=== PATIENT | male | born 1970 | race Two or more races ===

== ENCOUNTER 2016-07-07 18:37 | Emergency (ER) | payer SELFPAY ==
[2016-07-07] MEDS ORDERED: OXYCODONE-ACETAMINOPHEN 5-325 MG TABLET PO ONE (19:16)
--- NOTE | 2016-07-07 19:17 | ER Document Report ---
ED Medical Screen (RME) - General Stated Complaint: BACK PAIN Mode of Arrival: Wheelchair Information source: Patient Notes: Patient complains of flareup of chronic low back pain after doing heavy lifting today. Patient does report some pain with urination. Patient denies any paresthesia. hx: None I have greeted and performed a rapid initial assessment of this patient. A comprehensive ED assessment and evaluation of the patient, analysis of test results and completion of the medical decision making process will be conducted by additional ED providers. TRAVEL OUTSIDE OF THE [place] IN LAST 30 DAYS: No - Related Data Allergies/Adverse Reactions: ibuprofen [Ibuprofen] Allergy (Unknown, Verified 07/07/16 19:16) tramadol Allergy (Verified 07/07/16 19:16) Past Medical History Past Surgical History: Reports: Hx Orthopedic Surgery - right shoulder surgery - Immunizations Hx Diphtheria, Pertussis, Tetanus Vaccination: No - 2011 Physical Exam - Vital signs Vitals: Temp Pulse Resp BP Pulse Ox 97.9 F 91 24 H 126/79 H 98 07/07/16 18:54 07/07/16 18:54 07/07/16 18:54 07/07/16 18:54 07/07/16 18:54 - Back Back: Tender - Low back Course - Vital Signs Vital signs: Temp Pulse Resp BP Pulse Ox 97.9 F 91 24 H 126/79 H 98 07/07/16 18:54 07/07/16 18:54 07/07/16 18:54 07/07/16 18:54 07/07/16 18:54
[2016-07-07 20:00] LABS: APPEARANCE,URINE CLEAR; BILIRUBIN,URINE NEGATIVE (NEGATIVE); GLUCOSE, URINE NEGATIVE (NEGATIVE); KETONES,URINE NEGATIVE (NEGATIVE); LEUKOCYTE ESTERASE,URINE NEGATIVE (NEGATIVE); NITRITE,URINE NEGATIVE (NEGATIVE); PROTEIN,URINE NEGATIVE (NEGATIVE); URINE SPECIFIC GRAVITY 1.003; UROBILINOGEN,URINE NEGATIVE mg/dL (<2.0)
--- NOTE | 2016-07-07 20:48 | ER Document Report ---
ED Neck/Back Problem - General Chief Complaint: Back Pain Stated Complaint: BACK PAIN Mode of Arrival: Wheelchair Information source: Patient Notes: 46-year-old Male presents to the emergency department complaining of lower back pain. 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 Patient reports several similar episodes in the past. Denies fall or direct trauma, fever, extremity weakness/numbness/tingling , saddle numbness, incontinence, urinary retention, dysuria or hematuria. TRAVEL OUTSIDE OF THE [place] IN LAST 30 DAYS: No - HPI Patient complains to provider of: Lower back Onset: This afternoon Where: Work Onset: Gradual Timing: Still present Quality of pain: Achy Severity: Moderate Pain Level: 4 Context: Lifting Recent injury: Possibly Associated symptoms: Like prior neck/back pain, Lower back pain. denies: None, Abdominal pain, Chest pain, Chills, Constipation, Fever, Incontinence, Motor loss, Numbness/tingling, Radiation to arm, Radiation to chest, Radiation to leg , Sensory loss, Sweaty, Unable to urinate, Upper back pain, Other Exacerbated by: Movement of trunk Relieved by: Supine Similar symptoms previously: Yes Recently seen / treated by doctor: No - Related Data Allergies/Adverse Reactions: ibuprofen [Ibuprofen] Allergy (Unknown, Verified 07/07/16 19:16) tramadol Allergy (Verified 07/07/16 19:16) Past Medical History - General Information source: Patient - Social History Smoking Status: Current Some Day Smoker Chew tobacco use (# tins/day): No Frequency of alcohol use: None Drug Abuse: None Lives with: Family Family History: Reviewed & Not Pertinent Patient has suicidal ideation: No Patient has homicidal ideation: No - Medical History Medical History: Negative Renal/ Medical History: Denies: Hx Peritoneal Dialysis Past Surgical History: Reports: Hx Orthopedic Surgery - right shoulder surgery - Immunizations Hx Diphtheria, Pertussis, Tetanus Vaccination: Yes - 2011 Review of Systems - Review of Systems Constitutional: No symptoms reported EENT: No symptoms reported Cardiovascular: No symptoms reported Respiratory: No symptoms reported Gastrointestinal: No symptoms reported Genitourinary: No symptoms reported Male Genitourinary: No symptoms reported Musculoskeletal: See HPI Skin: No symptoms reported Hematologic/Lymphatic: No symptoms reported Neurological/Psychological: No symptoms reported -: Yes All other systems reviewed and negative Physical Exam - Vital signs Vitals: Temp Pulse Resp BP Pulse Ox 97.9 F 91 24 H 126/79 H 98 07/07/16 18:54 07/07/16 18:54 07/07/16 18:54 07/07/16 18:54 07/07/16 18:54 Interpretation: Normal - General General appearance: Appears well, Alert In distress: None - HEENT Head: Normocephalic, Atraumatic Eyes: Normal Pupils: PERRL - Respiratory Respiratory status: No respiratory distress Chest status: Nontender Breath sounds: Normal Chest palpation: Normal - Cardiovascular Rhythm: Regular Heart sounds: Normal auscultation Murmur: No Pulses: Normal: Radial, Posterior tibial, Dorsalis pedis Normal capillary refill: Yes - Abdominal Inspection: Normal Distension: No distension Bowel sounds: Normal Tenderness: Nontender Organomegaly: No organomegaly - Back Back: Tender - Tenderness with palpation to bilateral paraspinal musculature L> R lumbar level. Full range of motion without paresthesias or neurological deficits.. No: Normal, Nontender, Deformity/step-off, CVA tenderness, Vertebra tenderness, Scars, Scoliosis, Wounds, Other - Extremities General upper extremity: Normal inspection, Nontender, Normal color, Normal ROM , Normal strength, Normal temperature. No: Tender, Edema General lower extremity: Normal inspection, Nontender, Normal color, Normal ROM , Normal strength, Normal temperature, Normal weight bearing. No: Tender, Edema , Krupa's sign - Neurological Neuro grossly intact: Yes Cognition: Normal Orientation: AAOx4 Mario Coma Scale Eye Opening: Spontaneous Mario Coma Scale Verbal: Oriented Mario Coma Scale Motor: Obeys Commands Mario Coma Scale Total: 15 Speech: Normal Motor strength normal: LUE, RUE, LLE, RLE Sensory: Normal - Psychological Associated symptoms: Normal affect, Normal mood - Skin Skin Temperature: Warm Skin Moisture: Dry Skin Color: Normal Skin Turgor: Elastic Course - Re-evaluation Re-evalutation: 07/07/16 20:52 Patient hemodynamically stable, in no distress, afebrile. The patient presents with back pain without signs of spinal cord compression, cauda equina syndrome, infection, aneurysm, or other serious etiology. The patient is neurologically intact, independently and steadily ambulatory without paresthesias or neurological deficits. Given the extremely low risk of these diagnoses further testing and evaluation for these possibilities does not appear to be indicated at this time. Patient appears stable for discharge and agrees with home care, follow-up with PCP, and ED return precautions. - Vital Signs Vital signs: Temp Pulse Resp BP Pulse Ox 97.9 F 91 24 H 126/79 H 98 07/07/16 18:54 07/07/16 18:54 07/07/16 18:54 07/07/16 18:54 07/07/16 18:54 Discharge - Discharge Clinical Impression: Low back pain Qualifiers: Chronicity: acute Back pain laterality: bilateral Sciatica presence: without sciatica Qualified Code(s): M54.5 - Low back pain Condition: Stable Disposition: HOME, SELF-CARE Instructions: Family Physicians / Practices Additional Instructions: LOW BACK PAIN: Three out of every four people will have an episode of disabling back pain during their lifetime. Most commonly the pain is due to straining of the muscles and ligaments in the low back. Usual treatment includes: (1) Rest on a firm surface. Avoid lying on your stomach. (2) Ice pack the painful area. After a few days, gentle heat may be used intermittently to relax the area, or ice packs can be continued. (3) Medication may be needed -- muscle relaxers and antiinflammatory medicines are commonly used. (4) As the back improves, exercises are prescribed to strengthen the back and abdominal muscles. Your doctor will advise you on the proper care for your back at each stage in your recovery. You may be better in a few days -- or healing may take several weeks. If new symptoms of a "herniated disc" (radiation of pain, numbness, or tingling down the back of the leg or weakness in the leg) occur, you should be re-examined. Further testing may be necessary. PAIN MEDICATION INJECTION: You have received an injection of a pain medication. You should experience significant pain relief within 45 minutes. If this injection was a narcotic -- it will impair your judgement, slow your reaction time and make you sleepy (as well as relieve your pain). Narcotics also can cause nausea. You should not drive, work with machinery, or perform any task requiring mental alertness until all effects of the medication are gone -- six to eight hours. Do not take any alcohol, or sedatives, and do not take any other medication without checking with your physician. ORAL NARCOTIC MEDICATION: You have been given a prescription for pain control. This medication is a narcotic. It's best taken with food, as nausea can result if taken on an empty stomach. Don't operate machinery or drive within six hours of taking this medication. Do not combine this medicine with alcohol, or with any medication which can cause sedation (such as cold tablets or sleeping pills) unless you get permission from the physician. Narcotics tend to cause constipation. If possible, drink plenty of fluids and eat a diet high in fiber and fruits. Please be aware that prescription narcotics also have the potential for abuse. People become addicted to these medications because of the general sense of wellbeing that they induce. This feeling along with a significant reduction in tension, anxiety, and aggression provides a stimulating seductive quality to these drugs. Once your pain is under control, we encourage you to discard your unused narcotics. MUSCLE RELAXERS: Muscle relaxing medications are usually prescribed for acute muscle spasm or injury to the neck and back. They are often combined with antiinflammatory pain medication for increased relief. You may stop the muscle relaxer when the pain and stiffness have improved. Start the medication again if spasms recur. Muscle relaxers may cause drowsiness, especially with the first dose. Do not operate machinery or drive while under the effects of the medication. Most muscle relaxers last up to 24 hours. Do not combine the medication with alcohol. ICE PACKS: Apply ice packs frequently against the painful area. Many different schedules are recommended, such as "20 minutes on, 20 minutes off" or "one hour ice, two hours rest." If you need to work, you may need to go longer between ice treatments. You should plan to have the area ice packed AT LEAST one fourth of the time. The ice should be applied over the wrap, tape, or splint, or over a layer of cloth -- not directly against the skin. Some ice bags have a built-in cloth and can be put directly on the skin. WARM PACKS: After approximately two days, apply gentle heat (such as a heating pad or hot water bottle) for about 20 to 30 minutes about every two hours -- at least four times daily. Warmth and elevation will help you make a more rapid recovery , and will ease the pain considerably. Do not use HOT heat, and never apply heat for longer than 30 minutes. The continuous heat can invisibly damage skin and muscles -- even when no burn is seen on the surface. Damaged muscles can make you MORE sore. Anti-Inflammatory Medication You have received a prescription for an antiinflammatory agent. This is an excellent, safe drug for pain control. In addition, it has potent antiinflammatory effects which are beneficial, especially in the treatment of injuries, arthritis, or tendonitis. It's best to take this medicine with food. Persons with ulcer disease or allergy to aspirin should notify their physician of this before taking this drug. Take the medication exactly as prescribed. Don't take additional doses unless instructed to do so by your doctor. If you develop wheezing, shortness of breath, hives, faintness, stomach pain, vomiting, or dark black stools, return for re-evaluation at once. FOLLOW-UP CARE: Follow-up with your primary care provider in 1-2 days. Return to the emergency department for any worsening symptoms or concerns. Prescriptions: Methocarbamol [Robaxin 500 mg Tablet] 500 mg PO Q8HP PRN #10 tablet PRN Reason: Hydrocodone/Acetaminophen [Calvin 5-325 mg Tablet] 1 tab PO Q6H PRN #8 tablet PRN Reason: Naproxen [Naprosyn 375 Mg Tablet] 375 mg PO BIDP PRN #10 tablet PRN Reason: Forms: Elevated Blood Pressure
[2016-07-07 21:44] VITALS: BP 120/67
== END 2016-07-07 21:45 | disposition home or self-care (01) ==
LOC: ER 18:37
DX: M54.5 Low back pain (principal); M54.9 Dorsalgia, unspecified; F17.210 Nicotine dependence, cigarettes, uncomplicated
CPT/HCPCS: 81001; 99283

== ENCOUNTER 2016-08-16 08:00 | Emergency (ER) | payer SELFPAY ==
[2016-08-16] MEDS ORDERED: ACETAMINOPHEN 325 MG TABLET PO ONE (08:10)
[2016-08-16] MEDS ORDERED: OXYCODONE-ACETAMINOPHEN 5-325 MG TABLET PO ONE (08:38)
[2016-08-16] MEDS ORDERED: METHOCARBAMOL 750 MG TABLET PO ONE (08:38)
--- NOTE | 2016-08-16 08:48 | ER Document Report ---
HPI - HPI Patient complains to provider of: right shoulder pain Onset: Other - 2 days Onset/Duration: Persistent, Waxing and waning Quality of pain: Achy Severity: Severe Pain Level: 5 Context: Patient presents to the emergency department with complaints of right shoulder pain for the last 2 days. 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 He denies recent injury or lifting something heavy. He reports pain started for no reason 2 days ago. He is having a hard time sleeping. Denies other symptoms for such as fever vomiting diarrhea. Reports history of surgery to the right shoulder with MRSA infection years ago. 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 IN LAST 30 DAYS: No - HEENT HEENT: Atraumatic, Normocephalic - NECK Neck: Normal Inspection - no obvious swelling, no erythema no open wounds no warmth, chin to chest without c/o pain, Supple. 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 No erythema/ warmth/swelling. - NEURO Level of Consciousness: Awake, Alert, Appropriate Motor/Sensory: No Motor Deficit - DERM Integumentary: Warm, Dry Adult Front & Back Diagram: 1 - c/o pain when palpated, c/o pain when turning head to right Course - Re-evaluation Re-evalutation: 08/16/16 No shoulder pain noted. Patient instructed on plan of care. Patient instructed to take medications as prescribed he verbalized understanding he was also instructed to follow up with orthopedics for continued pain. - Vital Signs Vital signs: Temp Pulse Resp BP Pulse Ox 97.6 F 83 20 137/82 H 97 08/16/16 08:05 08/16/16 08:05 08/16/16 08:05 08/16/16 08:05 08/16/16 08:05 Discharge - Discharge Clinical Impression: Strain of right trapezius muscle Qualifiers: Encounter type: initial encounter Qualified Code(s): S46.811A - Strain of other muscles, fascia and tendons at shoulder and upper arm level, right arm, initial encounter Condition: Stable Disposition: HOME, SELF-CARE Instructions: Muscle Relaxers ([facility]), Muscle Strain ([facility]), Family Physicians / Practices Additional Instructions: *You have been evaluated for muscle strain, trapezius strain *Follow up with orthopedics for continued pain-call for an appointment *Follow up with a primary care provider for recheck within one week *Take medication as prescribed *Monitor your blood pressure. Your blood pressure was elevated today. This may be because you were anxious, in pain or because you need medication. It is important to follow up with your primary care provider for full evaluation. *Return to ED for worsening condition, changes, needs Prescriptions: Cyclobenzaprine HCl [Flexeril 10 Mg Tablet] 10 mg PO TID #30 tablet Oxycodone HCl/Acetaminophen [Percocet 5-325 mg Tablet] 1 tab PO QID #10 tablet Forms: Elevated Blood Pressure Referrals: [facility] ([facility]) [Provider Group] - Follow up as needed
[2016-08-16 09:36] VITALS: BP 133/88
== END 2016-08-16 10:03 | disposition home or self-care (01) ==
LOC: ER 08:00
DX: S29.012A Strain of muscle and tendon of back wall of thorax, initial encounter (principal); X58.XXXA Exposure to other specified factors, initial encounter; M25.511 Pain in right shoulder; Z98.890 Other specified postprocedural states; Z86.14 Personal history of Methicillin resistant Staphylococcus aureus infection; F17.210 Nicotine dependence, cigarettes, uncomplicated
CPT/HCPCS: 99283; J3490

== ENCOUNTER 2016-10-31 15:09 | Emergency (ER) | payer SELFPAY ==
[2016-10-31] MEDS ORDERED: HYDROCODONE/ACETAMINOPHEN 5-325 MG TABLET PO ONE (15:35)
--- NOTE | 2016-10-31 15:35 | ER Document Report ---
ED Oral Problem - General Chief Complaint: Jaw Injury Stated Complaint: JAW PAIN Time Seen by Provider: 10/31/16 15:24 Mode of Arrival: Ambulatory Information source: Patient Notes: Pt is a 46 year old male who presents to the ER today for jaw pain to his left jaw after he dropped a car part on it yesterday while he was working on the radiator on his car. He states he's been taking tylenol but it hasn't been helping. He says the pain has worsened and it hurts to even open his mouth. he denies any issues breathing, swelling or bruising. TRAVEL OUTSIDE OF THE [place] IN LAST 30 DAYS: No - Related Data Allergies/Adverse Reactions: ibuprofen [Ibuprofen] Allergy (Unknown, Verified 08/16/16 09:18) tramadol Allergy (Verified 08/16/16 09:18) Past Medical History - General Information source: Patient - Social History Smoking Status: Current Every Day Smoker Cigarette use (# per day): Yes Chew tobacco use (# tins/day): No Frequency of alcohol use: Occasional Drug Abuse: None Family History: Reviewed & Not Pertinent Patient has suicidal ideation: No Patient has homicidal ideation: No Renal/ Medical History: Denies: Hx Peritoneal Dialysis Skin Medical History: Reports Hx MRSA Past Surgical History: Reports: Hx Orthopedic Surgery - right shoulder surgery - Immunizations Hx Diphtheria, Pertussis, Tetanus Vaccination: Yes - 2011 Review of Systems - Review of Systems Constitutional: No symptoms reported EENT: See HPI Cardiovascular: No symptoms reported Respiratory: No symptoms reported Gastrointestinal: No symptoms reported Genitourinary: No symptoms reported Male Genitourinary: No symptoms reported Musculoskeletal: See HPI Skin: No symptoms reported Hematologic/Lymphatic: No symptoms reported Neurological/Psychological: No symptoms reported Physical Exam - Vital signs Vitals: Temp Pulse Resp BP Pulse Ox 98.8 F 81 18 110/77 96 10/31/16 15:20 10/31/16 15:20 10/31/16 15:20 10/31/16 15:20 10/31/16 15:20 - Notes Notes: PHYSICAL EXAMINATION: GENERAL: obviously in pain, holding left jaw, but in no acute distress. HEAD: tender over left jaw, otherwise Atraumatic, normocephalic. EYES: Pupils equal round and reactive to light, extraocular movements intact, sclera anicteric, conjunctiva are normal. ENT: ear canals without erythema or foreign body, TMs pearly whiting with good bony landmarks, nares patent, oropharynx clear without exudates. Moist mucous membranes. airway patent NECK: Normal range of motion, supple without lymphadenopathy LUNGS: CTAB and equal. No wheezes rales or rhonchi. HEART: Regular rate and rhythm without murmurs SKIN: Warm, Dry, normal turgor, no rashes or lesions noted Course - Vital Signs Vital signs: Temp Pulse Resp BP Pulse Ox 98.8 F 81 18 110/77 96 10/31/16 15:20 10/31/16 15:20 10/31/16 15:20 10/31/16 15:20 10/31/16 15:20 Discharge - Discharge Clinical Impression: Jaw pain Condition: Stable Disposition: HOME, SELF-CARE Additional Instructions: please return with worsening symptoms, eat soft foods. Prescriptions: Hydrocodone/Acetaminophen [Artemas 5-325 mg Tablet] 1 tab PO Q4 PRN #12 tablet PRN Reason: Forms: Return to Work
[2016-10-31 18:27] VITALS: BP 142/90
== END 2016-10-31 18:18 | disposition home or self-care (01) ==
LOC: ER 15:09
DX: R68.84 Jaw pain (principal); W22.8XXA Striking against or struck by other objects, initial encounter; F17.210 Nicotine dependence, cigarettes, uncomplicated
CPT/HCPCS: 70150; 99283

== ENCOUNTER 2016-12-28 15:09 | Emergency (ER) | payer SELFPAY ==
--- NOTE | 2016-12-28 15:40 | ER Document Report ---
ED General - General Chief Complaint: Rib Pain Stated Complaint: LEFT FLANK PAIN Mode of Arrival: Ambulatory Information source: Patient Notes: Patient is a 46 yo male who presents left anterior rib pain that started 6 days ago when he was helping move a weight lifting bar and fell forward hitting his chest on the bar. Pain is worse with deep inspiration, coughing, movement. He has tried tylenol and ibuprofen without pain relief. Denies any fever, chills, cough, vomiting, hematuria. TRAVEL OUTSIDE OF THE [place] IN LAST 30 DAYS: No - Related Data Allergies/Adverse Reactions: ibuprofen [Ibuprofen] Allergy (Unknown, Verified 08/16/16 09:18) tramadol Allergy (Verified 08/16/16 09:18) Past Medical History - Social History Smoking Status: Current Every Day Smoker Chew tobacco use (# tins/day): No Frequency of alcohol use: None Drug Abuse: None Family History: Reviewed & Not Pertinent Patient has suicidal ideation: No Patient has homicidal ideation: No Renal/ Medical History: Denies: Hx Peritoneal Dialysis Skin Medical History: Reports Hx MRSA Past Surgical History: Reports: Hx Orthopedic Surgery - right shoulder surgery - Immunizations Hx Diphtheria, Pertussis, Tetanus Vaccination: Yes - 2011 Review of Systems - Review of Systems Constitutional: See HPI EENT: No symptoms reported Cardiovascular: No symptoms reported Respiratory: See HPI Gastrointestinal: No symptoms reported Genitourinary: No symptoms reported Male Genitourinary: No symptoms reported Musculoskeletal: No symptoms reported Skin: No symptoms reported Hematologic/Lymphatic: No symptoms reported Neurological/Psychological: No symptoms reported Physical Exam - Vital signs Vitals: Temp Pulse Resp BP Pulse Ox 98.8 F 84 14 134/83 H 97 12/28/16 15:17 12/28/16 15:17 12/28/16 15:17 12/28/16 15:17 12/28/16 15:17 - Notes Notes: PHYSICAL EXAM: CONSTITUTIONAL: Alert and oriented, well-appearing and in no acute distress. HENT: Normocephalic, atraumatic. Trachea midline. Uvula midline. Moist mucous membranes. EYES: Pupils equal round and reactive to light, EOM intact. Sclera anicteric, conjunctiva are normal. No entrapment. NECK: supple without lymphadenopathy. No midline tenderness or paraspinous muscle spasms. No step-offs or deformities. ROM intact. HEART: Regular rate and rhythm without murmurs. LUNGS: CTAB and equal. No wheezes, rales or rhonchi. anterior left ribs tender to palpation in mid-clavicular line without ecchymosis, step-offs, crepitus or deformities. BACK: nontender, no paraspinous spasm, 5+/5 strengths, DTRs 2+, SLR -. EXTREMITIES: Normal range of motion, no pitting edema. No cyanosis. Cap Refill < 3 seconds. NEURO: Cranial nerves grossly intact. Normal sensory/motor exams. PSYCH: Normal mood, normal affect. SKIN: Warm and dry. Normal turgor. No rashes or lesions noted. Course - Re-evaluation Re-evalutation: 12/28/16 16:45 Patient seen and examined. Anterior left ribs tender to palpation in mid- clavicular line without ecchymosis, step-offs, crepitus or deformities. Lung sounds equal bilaterally. Xray negative for pneumothorax or displaced rib fractures. Will treat with pain medications and discussed breathing techniques to avoid atelectasis/pneumonia. At this time, will discharge with return precautions and follow-up recommendations. Verbal discharge instructions given at the bedside and opportunity for questions given. Medication warnings reviewed. Patient is in agreement with this plan and has verbalized understanding of return precautions and the need for primary care follow-up in the next 24-72 hours. - Vital Signs Vital signs: Temp Pulse Resp BP Pulse Ox 98.8 F 84 14 134/83 H 97 12/28/16 15:17 12/28/16 15:17 12/28/16 15:17 12/28/16 15:17 12/28/16 15:17 Discharge - Discharge Clinical Impression: Contusion of rib on left side Qualifiers: Encounter type: initial encounter Qualified Code(s): S20.212A - Contusion of left front wall of thorax, initial encounter Condition: Stable Disposition: HOME, SELF-CARE Additional Instructions: Rib Contusion You have been diagnosed as having bruised ribs. It will usually take a few weeks for these injured ribs to heal. You should cough or take a deep breath at least every hour or two to prevent lung complications. You should not engage in any strenuous physical activity until released by your physician. The usual rule is "if it hurts, don' t do it." Return if you develop any of the following: (1) Fever or chills. (2) Persistent cough, coughing up blood, or shortness of breath. (3) Increasing pain. (4) Weakness, lightheadedness, or fainting. Anti-Inflammatory Medication You have received a prescription for an antiinflammatory agent. This is an excellent, safe drug for pain control. In addition, it has potent antiinflammatory effects which are beneficial, especially in the treatment of injuries, arthritis, or tendonitis. It's best to take this medicine with food. Persons with ulcer disease or allergy to aspirin should notify their physician of this before taking this drug. Take the medication exactly as prescribed. Don't take additional doses unless instructed to do so by your doctor. If you develop wheezing, shortness of breath, hives, faintness, stomach pain, vomiting, or dark black stools, return for re-evaluation at once. FOLLOW-UP CARE: If you have been referred to a physician for follow-up care, call the physician s office for an appointment as you were instructed or within the next two days. If you experience worsening or a significant change in your symptoms, notify the physician immediately or return to the Emergency Department at any time for re-evaluation. Prescriptions: Hydrocodone/Acetaminophen [Crane 5-325 mg Tablet] 1 tab PO Q6H PRN #10 tablet PRN Reason: Naproxen [Naprosyn 250 mg Tablet] 250 mg PO DAILY PRN #14 tablet PRN Reason: Forms: Return to Work
--- NOTE | 2016-12-28 16:28 | RADIOLOGY REPORT (SQ) ---
EXAM DESCRIPTION: RIBS LEFT W/PA CHEST COMPLETED DATE/TIME: 12/28/2016 4:16 pm REASON FOR STUDY: fell, hit left ribs, pain with inspiration COMPARISON: None. TECHNIQUE: Frontal view of the chest and additional views of the left ribs acquired. NUMBER OF VIEWS: Four view. LIMITATIONS: None. FINDINGS: FRONTAL CXR: No pneumothorax. No pleural effusion. No atelectasis or infiltrates. RIBS: No displaced rib fractures. No lytic or blastic bony lesions. OTHER: No other significant finding. IMPRESSION: NO PNEUMOTHORAX. NO DISPLACED RIB FRACTURES. COMMENT: SITE OF TRAUMA/COMPLAINT MARKED/STAMP COMPLETED: YES. TECHNICAL DOCUMENTATION: JOB ID: [id number] [employer]- All Rights Reserved
[2016-12-28 16:57] VITALS: BP 127/77
== END 2016-12-28 16:57 | disposition home or self-care (01) ==
LOC: ER 15:09
DX: S20.212A Contusion of left front wall of thorax, initial encounter (principal); R07.81 Pleurodynia; R10.9 Unspecified abdominal pain; F17.200 Nicotine dependence, unspecified, uncomplicated; X58.XXXA Exposure to other specified factors, initial encounter
CPT/HCPCS: 99283

== ENCOUNTER 2018-11-24 15:26 | Emergency (ER) | payer SELFPAY ==
[2018-11-24 15:31] VITALS: BP 110/81
[2018-11-24] MEDS ORDERED: LIDOCAINE 5% (700 MG) TRANSDERMAL ADH..PATCH TP ONE (15:54)
[2018-11-24] MEDS ORDERED: OXYCODONE HCL IR 5 MG TABLET PO ONE (15:54)
--- NOTE | 2018-11-24 15:56 | ER Document Report ---
HPI - HPI Time Seen by Provider: 11/24/18 15:47 Pain Level: 5 Notes: Patient is a 48-year-old male with a history of previous right shoulder surgery who presents complaining of right trapezius muscle pain and spasming after he had a fall 2 days ago. Patient states that he fell on his right shoulder without hitting his head or losing conscious. Patient states that he was doing well since then, but over the past 24 hours started having pain and tightness on the right side of his neck and right shoulder area. Pain does not radiate. Movement does make the pain worse. He is still able to eat and drink without difficulty. He is urinating normally. No other concerns or complaints. Denies any headache, fever, head injury, changes in vision/speech/mentation/hearing, URI, sore throat, chest pain, palpitations, syncope, cough, shortness of breath, wheeze, dyspnea, abdominal pain, nausea/vomiting/diarrhea, urinary retention, dysuria, hematuria, loss of control of bowel or bladder, numbness/tingling, saddle anesthesia, muscle paralysis/weakness, or rash. - ROS Systems Reviewed and Negative: Yes All other systems reviewed and negative Past Medical History - Social History Smoking Status: Unknown if Ever Smoked Family History: Reviewed & Not Pertinent Renal/ Medical History: Denies: Hx Peritoneal Dialysis Skin Medical History: Reports Hx MRSA Past Surgical History: Reports: Hx Orthopedic Surgery - right shoulder surgery - Immunizations Hx Diphtheria, Pertussis, Tetanus Vaccination: Yes - 2011 [facility] Provider Document - CONSTITUTIONAL Agree With Documented VS: Yes Notes: PHYSICAL EXAMINATION: GENERAL: Well-appearing, well-nourished and in no acute distress. NECK: Normal range of motion, supple without lymphadenopathy. Non-tender to midline. Spurling negative. No rigidity/meningismus. + tenderness to rt c- paraspinal mm that correlates with pain described through the trapezius muscle. LUNGS: Breath sounds clear to auscultation bilaterally and equal. No wheezes rales or rhonchi. HEART: Regular rate and rhythm without murmurs, rubs, gallops. Musculoskeletal: Rt shoulder: FROM to passive. LROM to active due to pain. Strength 5+/5. Neg impingement test. Neg speed test. No crepitus. No erythema or warmth. No deformity or ecchymosis. RC intact 5+/5 strength. + reproducible tenderness to the rt Trapezius mm with palp and ROM with trigger points noted. No bony tenderness to the RUE otherwise. Back: FROM. Strength 5+/5. No midline tenderness, foot drop. Extremities: No cyanosis, clubbing, or edema b/l. Peripheral pulses 2+. Capillary refill less than 3 seconds. NEUROLOGICAL: Normal speech, normal gait. Normal sensory, motor exams PSYCH: Normal mood, normal affect. SKIN: Warm, Dry, normal turgor, no rashes or lesions noted. - INFECTION CONTROL TRAVEL OUTSIDE OF THE [place] IN LAST 30 DAYS: No Course - Re-evaluation Re-evalutation: 11/24/18 15:59 Patient is an afebrile, well-hydrated, 48-year-old male who presents to the ED with Right trapezius mm pain which I suspect to be spasming. Vitals are acceptable without any significant tachycardia, tachypnea, or hypoxia. PE is otherwise unremarkable for any neurovascular compromise, obvious tendon/ligament rupture, obvious fracture/dislocation, septic joint. No bony tenderness. Reviewed imaging with the patient who is in agreement with not performing at this time. NEXUS negative. Lidoderm applied and pain medicine given PO today. Sling provided. Patient is nontoxic-appearing. No other labs or imaging warranted at this time based on H&P. Conservative measures otherwise for symptoms. Recheck with your PCM in 3-5 days. Consider consult orthopedics. Return to the ED with any worsening/concerning symptoms otherwise as reviewed in discharge. Patient is in agreement. - Vital Signs Vital signs: Temp Pulse Resp BP Pulse Ox 98.3 F 111 H 18 110/81 97 11/24/18 15:30 11/24/18 15:30 11/24/18 15:30 11/24/18 15:30 11/24/18 15:30 Discharge - Discharge Clinical Impression: Trapezius muscle spasm Condition: Stable Disposition: HOME, SELF-CARE Additional Instructions: Rest, Ice, Compression Tylenol/ibuprofen as needed Light stretches daily Strength exercises as able Moist heat and massage may help F/u with your PCP in 3-5 days for a recheck Consider consult(s) with Orthopedics/physical therapy for ongoing/worsening symptoms Return to the ED with any worsening symptoms and/or development of fever, headache, chest pain, palpitations, syncope, shortness of breath, trouble breathing, abdominal pain, n/v/d, muscle weakness/paralysis, numbness/tingling, swelling, redness, or other worsening symptoms that are concerning to you. Prescriptions: Lidocaine [Lidoderm 5% (700 mg) Transdermal Patch] 1 patch TP DAILY #5 adh..patch Methocarbamol [Robaxin] 500 mg PO TID PRN #12 tablet PRN Reason: Forms: Return to Work Referrals: [facility] ([facility] [Provider Group] - Follow up as needed
== END 2018-11-24 16:08 | disposition home or self-care (01) ==
LOC: ER 15:26
DX: M62.838 Other muscle spasm (principal); W19.XXXA Unspecified fall, initial encounter
CPT/HCPCS: 99283

== ENCOUNTER 2019-05-16 09:10 | Emergency (ER) | payer SELFPAY ==
[2019-05-16 09:20] VITALS: BP 121/67
--- NOTE | 2019-05-16 09:40 | ER Document Report ---
HPI - HPI Patient complains to provider of: dental pain Time Seen by Provider: 05/16/19 09:34 Onset: Last week Onset/Duration: Gradual Quality of pain: Throbbing Severity: Severe Pain Level: 5 Associated Symptoms: Other - Dental pain upper back molar on the right, stye to both eyes external upper lid Exacerbated by: Food Relieved by: Denies Similar symptoms previously: Yes Recently seen / treated by doctor: No - ROS ROS below otherwise negative: Yes - CONSTITUTIONAL Constitutional: DENIES: Fever, Chills - EENT EENT: REPORTS: Eye problems - Stye on bilateral eyelid - NEURO Neurology: DENIES: Headache, Weakness, Vision blurred, Dizzinesss / Vertigo Notes: Very loose painful upper right tooth - CARDIOVASCULAR Cardiovascular: DENIES: Chest pain - RESPIRATORY Respiratory: DENIES: Trouble Breathing, Coughing - GASTROINTESTINAL Gastrointestinal: DENIES: Abdominal Pain, Nausea, Patient vomiting, Diarrhea, Constipation, Black / Bloody Stools - URINARY Urinary: DENIES: Dysuria, Urgency, Frequency - REPRODUCTIVE Reproductive: DENIES: :, Postmenopausal, Abnormal bleeding / discharge - MUSCULOSKELETAL Musculoskeletal: DENIES: Extremity pain, Back Pain, Neck Pain, Swelling - DERM Skin Color: Normal Skin Problems: None Past Medical History - General Information source: Patient - Social History Smoking Status: Current Every Day Smoker Cigarette use (# per day): Yes - Pack a day Chew tobacco use (# tins/day): No Smoking Education Provided: Yes - 4 minutes Frequency of alcohol use: 2 beer daily Drug Abuse: None 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, 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 Family History: Reviewed & Not Pertinent Patient has suicidal ideation: No Patient has homicidal ideation: No - Medical History Medical History: Other - Was premature her less than 2 pounds - Past Medical History Cardiac Medical History: Reports: None Pulmonary Medical History: Reports: None, Other - To burn born for pneumothorax EENT Medical History: Reports: None Neurological Medical History: Reports: None Endocrine Medical History: Reports: None Renal/ Medical History: Reports: None Malignancy Medical History: Reports None GI Medical History: Reports: None Musculoskeletal Medical History: Reports Hx Musculoskeletal Deformity, Reports Hx Musculoskeletal Trauma Skin Medical History: Reports Hx MRSA Psychiatric Medical History: Reports: None Traumatic Medical History: Reports: None Infectious Medical History: Reports: None Past Surgical History: Reports: Hx Orthopedic Surgery - right shoulder surgery, hand - Immunizations Hx Diphtheria, Pertussis, Tetanus Vaccination: Yes - 2011 [employer] Provider Document - CONSTITUTIONAL Agree With Documented VS: Yes Exam Limitations: No Limitations General Appearance: WD/WN, No Apparent Distress - INFECTION CONTROL TRAVEL OUTSIDE OF THE [place] IN LAST 30 DAYS: No - HEENT HEENT: HETAL [place] Mouth Diagram: 1 - Tooth is very loose pain around the tooth mild swelling to the gums Notes: Stye on the upper lid both eyes external otherwise eyes normal - NECK Neck: Normal Inspection - RESPIRATORY Respiratory: Breath Sounds Normal, No Respiratory Distress - CARDIOVASCULAR Cardiovascular: Regular Rate, Regular Rhythm Course - Re-evaluation Re-evalutation: 05/16/19 09:46 Presentation is most consistent with likely an infected tooth. Airway is patent. Vitals within normal limits. Patient is able swallow without any difficulty. There is no significant facial swelling. No evidence of Scar an david, apical abscess, or airway obstruction. Patient will be started on antibiotics. I've instructed to follow-up with dentistry as earliest ability for definitive management. At this time will discharge with return precautions and follow-up recommendations. Verbal discharge instructions given a the bedside and opportunity for questions given. Medication warnings reviewed. Patient is in agreement with this plan and has verbalized understanding of return precautions and the need for primary care follow-up in the next 24-72 hours. - Vital Signs Vital signs: Temp Pulse Resp BP Pulse Ox 97.7 F 108 H 16 121/67 98 05/16/19 09:18 05/16/19 09:18 05/16/19 09:18 05/16/19 09:18 05/16/19 09:18 Discharge - Discharge Clinical Impression: Bilateral stye upper lid external, Dental pain due to loose tooth Condition: Stable Disposition: HOME, SELF-CARE Additional Instructions: TOOTHACHE: Your pain is due to dental decay. The tooth must be repaired in order for you to feel better. You will, therefore, be referred to a dentist. We do not have dentists on the staff at [facility]. Severe swelling or drainage around a tooth usually means a dental abscess. This also requires evaluation and treatment by the dentist, but antibiotics may be prescribed while awaiting dental treatment. You should be rechecked immediately if you develop major swelling of the f katelynn, increasing pain, a lump in the jaw or gums, headache, difficulty swallowing, or fever. PENICILLIN V K: You have been given a prescription for Penicillin VK. Your physician has determined that this is the best antibiotic for your condition. Pen VK can be taken with meals, however more of the antibiotic gets into the bloodstream if it's taken on an empty stomach. Penicillin usually has no side effects. However, allergy to penicillins is common. If you have had an allergic reaction to any drug of the penicillin family, you should never take any other penicillin. Notify your doctor at once if you develop hives, itching, swelling, faintness, or shortness of breath. Acetaminophen Acetaminophen may be taken for pain relief or fever control. It's much safer than aspirin, offering a wider range of "safe" dosages. It is safe during . Some brand names are Tylenol, Panadol, Datril, Anacin 3, Tempra, and Liquiprin. Acetaminophen can be repeated every four hours. The following are maximum recommended dosages: WEIGHT Dose Drops Elixir Chewable(80mg) (LBS.) drprs=droppers tsp=teaspoon 6 40 mg .4 ml (1/2) 6-11 80 mg .8 ml (full) 1/2 tsp 1 tab 12-16 120 mg 1 1/2 drprs 3/4 tsp 1 1/2 tabs 17-23 160 mg 2 drprs 1 tsp 2 tabs 24-30 240 mg 3 drprs 1 1/2 tsp 3 tabs 30-35 320 mg 2 tsp 4 tabs 36-41 360 mg 2 1/4 tsp 4 1/2 tabs 42-47 400 mg 2 1/2 tsp 5 tabs 48-53 480 mg 3 tsp 6 tabs 54-59 520 mg 3 1/4 tsp 6 1/2 tabs 60-64 560 mg 3 1/2 tsp 7 tabs 65-70 600 mg 3 3/4 tsp 7 1/2 tabs 71-76 640 mg 4 tsp 8 tabs 77-82 720 mg 4 1/2 tsp 9 tabs 83-88 800 mg 5 tsp 10 tabs >89 pounds or adults 650 mg to 900 mg Acetaminophen can be repeated every four hours. Maximum daily dose not to exceed 4000 mg. These maximum recommended dosages are slightly higher than the dosages written on the product container, but these dosages are very safe and well below the toxic dosage for acetaminophen. FOLLOW-UP CARE: You have been referred for follow-up care to the dentists listed below. Call the dentists office for an appointment as you were instructed or within th e next two days. If you experience worsening or a significant change in your symptoms, notify the physician immediately or return to the Emergency Department at any time for re-evaluation. [facility] [address] [place] [address] [facility] [address] [facility] [address] [facility] (4[facility]) [facility] [address] [email or web address] [address] [place] [address] Wednesday- 8:00am to 5:00 pm Will see patients from other [facility]. Charges based on income and family size and accepts Medicare, Medicaid, and Insurances Will pull molars [facility] [address] Hours of Operation 8:00 am - 4:30 pm weekdays The following dental offices accept Medicaid: [facility] Dr. Yu Dr. Vann Dr. Rocha Dr. Lares Amadou Michel Lutsavage, and [facility] Dr. Cedeno ([place]) Dr. Cisneros ([place]) [facility] Drs. Horvath and Devin ([place]) Dr. Weir ([place]) [facility] Dr. Mcmullen ([place]) Drs. Mendes and ([place]) Medicaid Care Line Prescriptions: Penicillin V Potassium [Penicillin Vk 500 mg Tablet] 500 mg PO BID #20 tablet Referrals: [facility] [Provider Group] - Follow up as needed
[2019-05-16] MEDS ORDERED: ACETAMINOPHEN 325 MG TABLET PO ONE (09:45)
[2019-05-16] MEDS ORDERED: PENICILLIN V POTASSIUM 500 MG TABLET PO ONE (09:45)
== END 2019-05-16 09:50 | disposition home or self-care (01) ==
LOC: ER 09:10
DX: H00.014 Hordeolum externum left upper eyelid (principal); H00.011 Hordeolum externum right upper eyelid; K08.9 Disorder of teeth and supporting structures, unspecified; M54.6 Pain in thoracic spine; F17.210 Nicotine dependence, cigarettes, uncomplicated; Z86.14 Personal history of Methicillin resistant Staphylococcus aureus infection
CPT/HCPCS: 99282; 99406

== ENCOUNTER 2019-12-25 11:39 | Emergency (ER) | payer SELFPAY ==
[2019-12-25] MEDS ORDERED: DIPH/PERTUSS(ACELL)/TETANUS VAC/PF 0.5 ML SYR (>=10YO) IM ONE (12:15)
[2019-12-25] MEDS ORDERED: OXYCODONE-ACETAMINOPHEN 5-325 MG TABLET PO ONE (12:18)
--- NOTE | 2019-12-25 12:19 | ER Document Report ---
ED Medical Screen (RME) - General Chief Complaint: Finger Injury Stated Complaint: FINGER INJURY/LACERATION Time Seen by Provider: 12/25/19 12:12 Mode of Arrival: Ambulatory Information source: Patient Notes: 49-year-old male presented to ED for injury to his left ring finger. 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 Patient is alert oriented respirations regular nonlabored speaking in full sentences. 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 Bleeding is under control at this time. Tetanus and x-ray have been ordered in the triage area. I have greeted and performed a rapid initial assessment of this patient. A comprehensive ED assessment and evaluation of the patient, analysis of test results and completion of medical decision making process will be conducted by an additional ED providers. TRAVEL OUTSIDE OF THE [place] IN LAST 30 DAYS: No - Related Data Allergies/Adverse Reactions: ibuprofen [Ibuprofen] Allergy (Unknown, Verified 05/16/19 09:26) tramadol Allergy (Verified 05/16/19 09:26) Past Medical History Malignancy Medical History: Denies Hx Bone Cancer, Denies Hx Brain Cancer, Denies Hx Colorectal Cancer, Denies Hx Leukemia, Denies Hx Liver Cancer, Denies Hx Lung Cancer, Denies Hx Lymphoma, Denies Hx Pancreatic Cancer, Denies Hx Prostate Cancer, Denies Hx Renal (Kidney) Cancer, Denies Hx Skin Cancer, Denies Hx Testicular Cancer Musculoskeltal Medical History: Reports Hx Musculoskeletal Deformity, Reports Hx Musculoskeletal Trauma Skin Medical History: Reports Hx MRSA Past Surgical History: Reports: Hx Orthopedic Surgery - right shoulder surgery, hand - Immunizations Hx Diphtheria, Pertussis, Tetanus Vaccination: Yes - 2011 Physical Exam - Vital signs Vitals: Temp Pulse Resp BP Pulse Ox 99 F 94 22 H 126/86 H 100 12/25/19 11:46 12/25/19 11:46 12/25/19 11:46 12/25/19 11:46 12/25/19 11:46 Course - Vital Signs Vital signs: Temp Pulse Resp BP Pulse Ox 99 F 94 22 H 126/86 H 100 12/25/19 11:46 12/25/19 11:46 12/25/19 11:46 12/25/19 11:46 12/25/19 11:46
--- NOTE | 2019-12-25 12:57 | RADIOLOGY REPORT (SQ) ---
EXAM DESCRIPTION: FINGER LEFT IMAGES COMPLETED DATE/TIME: 12/25/2019 12:45 pm REASON FOR STUDY: left ring finger laceration/avulsion COMPARISON: None. NUMBER OF VIEWS: Three views. TECHNIQUE: AP, lateral, and oblique images acquired of the left fourth finger. LIMITATIONS: None. FINDINGS: MINERALIZATION: Normal. BONES: No acute fracture or dislocation. No worrisome bone lesions. SOFT TISSUES: There appears to be a soft tissue injury on the lateral aspect of 4th digit. OTHER: No other significant finding. IMPRESSION: Soft tissue injury. No osseous finding. TECHNICAL DOCUMENTATION: JOB ID: [id number] 2010 [employer]- All Rights Reserved Reading location - IP/workstation name: [email or web address]
[2019-12-25] MEDS ORDERED: LIDOCAINE 1% INJ-PF (10 MG/ML) 30 ML SDV INJ ONE (14:00)
[2019-12-25] MEDS ORDERED: BUPIVACAINE HCL 0.5 % INJ/PF 30 ML SDV INJ ONE (14:03)
[2019-12-25] MEDS ORDERED: CEPHALEXIN 500 MG CAPSULE PO ONE (15:47)
[2019-12-25 16:59] VITALS: BP 107/71
--- NOTE | 2019-12-25 17:12 | ER Document Report ---
Entered by ELAINE GUTIERREZ SCRIBE 12/25/19 1416 Acting as scribe for:AMELIA GARDNER MD ED Hand/Wrist Injury - General Chief Complaint: Finger Injury Stated Complaint: FINGER INJURY/LACERATION Time Seen by Provider: 12/25/19 12:12 Mode of Arrival: Ambulatory Information source: Patient Notes: This 49 year old male patient presents to the emergency department today with a injury to the fourth finger on his left hand. Patient states he was moving things to his truck and his wedding ring got caught on his car. Patient reports his tetanus vaccination has been updated today. TRAVEL OUTSIDE OF THE [place] IN LAST 30 DAYS: No - Related Data Allergies/Adverse Reactions: ibuprofen [Ibuprofen] Allergy (Unknown, Verified 05/16/19 09:26) tramadol Allergy (Verified 05/16/19 09:26) Past Medical History - General Information source: Patient - Social History Smoking Status: Current Every Day Smoker Cigarette use (# per day): Yes Family History: Reviewed & Not Pertinent Patient has homicidal ideation: No Musculoskeletal Medical History: Reports Hx Musculoskeletal Deformity, Reports Hx Musculoskeletal Trauma Skin Medical History: Reports Hx MRSA Past Surgical History: Reports: Hx Orthopedic Surgery - right shoulder surgery, hand - Immunizations Hx Diphtheria, Pertussis, Tetanus Vaccination: Yes - 2011 Review of Systems - Review of Systems Constitutional: No symptoms reported EENT: No symptoms reported Cardiovascular: No symptoms reported Respiratory: No symptoms reported Gastrointestinal: No symptoms reported Genitourinary: No symptoms reported Male Genitourinary: No symptoms reported Musculoskeletal: See HPI, Other - L ring finger injury Skin: No symptoms reported Hematologic/Lymphatic: No symptoms reported Neurological/Psychological: No symptoms reported -: Yes All other systems reviewed and negative Physical Exam - Vital signs Vitals: Temp Pulse Resp BP Pulse Ox 99 F 94 22 H 126/86 H 100 12/25/19 11:46 12/25/19 11:46 12/25/19 11:46 12/25/19 11:46 12/25/19 11:46 - General General appearance: Appears well, Alert - HEENT Head: Normocephalic, Atraumatic Eyes: Normal Pupils: PERRL - Respiratory Respiratory status: No respiratory distress Chest status: Nontender Breath sounds: Normal Chest palpation: Normal - Cardiovascular Rhythm: Regular Heart sounds: Normal auscultation Murmur: No - Abdominal Inspection: Normal Distension: No distension Bowel sounds: Normal Tenderness: Nontender - Extremities General lower extremity: Normal inspection. No: Edema Notes: Jagged laceration with 3/4 circumference around PIP joint of 4th finger of proximal left hand. Laceration has depth of 0.25 cm. No actively bleeding. Circulation of finger intact. Skin is emaciated and torn. Distal sensation intact. Full ROM, able to flex and extend finger. - Neurological Neuro grossly intact: Yes Cognition: Normal Orientation: AAOx4 Speech: Normal - Psychological Associated symptoms: Normal affect, Normal mood - Skin Skin Temperature: Warm Skin Moisture: Dry Skin Color: Normal Course - Re-evaluation Re-evalutation: 12/25/19 16:41 Patient resting comfortably digital block has taken anesthetic effect and therefore procedure was begun at 410. - Vital Signs Vital signs: Temp Pulse Resp BP Pulse Ox 98.1 F 75 18 107/71 99 12/25/19 16:50 12/25/19 16:50 12/25/19 16:50 12/25/19 16:50 12/25/19 16:50 - Diagnostic Test Radiology reviewed: Image reviewed Radiology results interpreted by me: 12/25/19 16:41 X-ray of left hand shows no fracture of the fourth digit however soft tissue loss was noted. Procedures - Laceration/Wound Repair Left Proximal Finger 4th digit Time completed: 04:35 Wound length (cm): 5 Wound's Depth, Shape: Irregular Laceration pre-procedure: Chloraprep applied, Sterile drapes applied Anesthetic type: 0.5% Bupivacaine Volume Anesthetic (mLs): 7 Wound explored: Clean, No foreign body removed Wound Debrided: Minimal Wound Repaired With: Sutures Suture Size/Type: 5:0, Vicryl Number of Sutures: 9 Layer Closure?: No Post-procedure wound care: Sterile dressing applied, Splint applied Post-procedure NV exam normal: Yes Complications: No Discharge - Discharge Clinical Impression: Finger laceration Condition: Stable Disposition: HOME, SELF-CARE Instructions: Laceration Care ([facility]), Prophylactic Antibiotic ([facility]), Tetanus Immunization Given ([facility]) Additional Instructions: Laceration Care Your laceration has been sutured to keep the skin edges aligned during healing. The time of suture removal depends on the nature and location of your cut. Please follow the care instructions the doctor has outlined for you and return for further care, according to the schedule you've been given. Keep the wound and dressing clean. Unless you were told otherwise, you may shower daily, blotting the wound dry with a clean, unused towel. At other times, If the dressing gets wet or blood soaked, remove it and blot the wound dry, then reapply a new dressing. Unless you were instructed otherwise, dressings should be changed at least daily. If any signs of infection occur (swelling, redness, increasing tenderness, red streaks, tender lumps in the armpit or groin above the laceration, or fever), see the doctor immediately. Wear splint on fourth finger x2 days to create better adhesion of wound site. Follow-up with primary care clinic in 2 days for wound check Sutures removal and 7 to 10 days Due to your allergies I recommend you take Tylenol as needed for pain. Prescriptions: Cephalexin Monohydrate [Keflex 500 mg Capsule] 500 mg PO QID #20 capsule I personally performed the services described in the documentation, reviewed and edited the documentation which was dictated to the scribe in my presence, and it accurately records my words and actions.
== END 2019-12-25 17:23 | disposition home or self-care (01) ==
LOC: ER 11:39
DX: S61.215A Laceration without foreign body of left ring finger without damage to nail, initial encounter (principal); W22.09XA Striking against other stationary object, initial encounter; Z23 Encounter for immunization; F17.210 Nicotine dependence, cigarettes, uncomplicated; Z88.6 Allergy status to analgesic agent; Z86.14 Personal history of Methicillin resistant Staphylococcus aureus infection
CPT/HCPCS: 99283; 90471; 73140; 90715; 12002; J3490 ×2